=== PATIENT | female | born 1990 | race Caucasian/White ===

== ENCOUNTER → 2019-09-14 11:43 | Outpatient (BNVA) | payer MEDICAID, SELFPAY | PROVIDERS: Family Provider Nurse Practitioner; PCP Nurse Practitioner; Visit Provider Nurse Practitioner | DX: M77.32 Calcaneal spur, left foot (principal); M79.672 Pain in left foot | CPT/HCPCS: 73610; 73630 ==

== ENCOUNTER → 2019-12-13 10:29 | Outpatient (BNVA) | payer MEDICAID, SELFPAY | PROVIDERS: Family Provider Nurse Practitioner; PCP Nurse Practitioner; Visit Provider Psychiatry & Neurology Psychiatry | DX: F41.9 Anxiety disorder, unspecified (principal); F32.9 Major depressive disorder, single episode, unspecified; F43.10 Post-traumatic stress disorder, unspecified | CPT/HCPCS: 99205 ==

== ENCOUNTER → 2020-01-10 07:49 | Outpatient (BNVA) | payer MEDICAID, SELFPAY | PROVIDERS: Family Provider Nurse Practitioner; PCP Nurse Practitioner; Visit Provider Nurse Practitioner Psychiatric/Mental Health | DX: F41.9 Anxiety disorder, unspecified (principal); F32.9 Major depressive disorder, single episode, unspecified; F43.10 Post-traumatic stress disorder, unspecified; F41.1 Generalized anxiety disorder | CPT/HCPCS: 99212 ==

== ENCOUNTER → 2020-02-07 08:12 | Outpatient (BNVA) | payer MEDICAID, SELFPAY | PROVIDERS: Family Provider Nurse Practitioner; PCP Nurse Practitioner; Visit Provider Nurse Practitioner Psychiatric/Mental Health | DX: F41.9 Anxiety disorder, unspecified (principal); F32.9 Major depressive disorder, single episode, unspecified; F43.10 Post-traumatic stress disorder, unspecified | CPT/HCPCS: 99212 ==

== ENCOUNTER → 2020-04-03 07:42 | Outpatient (BNVA) | payer MEDICAID, SELFPAY | PROVIDERS: Family Provider Nurse Practitioner; PCP Nurse Practitioner; Visit Provider Nurse Practitioner Psychiatric/Mental Health | DX: F32.9 Major depressive disorder, single episode, unspecified (principal); F41.9 Anxiety disorder, unspecified; F43.10 Post-traumatic stress disorder, unspecified | CPT/HCPCS: G0463 ==

== ENCOUNTER → 2020-04-05 14:40 | Outpatient (BNVA) | payer MEDICAID, SELFPAY | PROVIDERS: Family Provider Nurse Practitioner; PCP Nurse Practitioner; Visit Provider Nurse Practitioner | DX: Z11.59 Encounter for screening for other viral diseases (principal); R05 Cough; H60.90 Unspecified otitis externa, unspecified ear; J98.01 Acute bronchospasm | CPT/HCPCS: 87635 ==

== ENCOUNTER → 2020-05-22 07:48 | Outpatient (BNVA) | payer MEDICAID, SELFPAY | PROVIDERS: Family Provider Nurse Practitioner; PCP Nurse Practitioner; Visit Provider Nurse Practitioner Psychiatric/Mental Health | DX: F43.10 Post-traumatic stress disorder, unspecified (principal); F41.9 Anxiety disorder, unspecified; F32.9 Major depressive disorder, single episode, unspecified | CPT/HCPCS: 99212 ==

== ENCOUNTER → 2020-08-20 10:04 | Outpatient (BNVA) | payer BC, SELFPAY | PROVIDERS: Family Provider Nurse Practitioner; PCP Nurse Practitioner; Visit Provider Nurse Practitioner Psychiatric/Mental Health | DX: F43.10 Post-traumatic stress disorder, unspecified (principal); F41.9 Anxiety disorder, unspecified; F32.9 Major depressive disorder, single episode, unspecified | CPT/HCPCS: 99213 ==

== ENCOUNTER → 2020-08-24 09:13 | Outpatient (BNVA) | payer BC, SELFPAY | PROVIDERS: Family Provider Nurse Practitioner; PCP Nurse Practitioner; Visit Provider Counselor Mental Health | DX: F43.12 Post-traumatic stress disorder, chronic (principal) | CPT/HCPCS: 90834 ==

== ENCOUNTER → 2020-09-03 09:30 | Outpatient (BNVA) | payer BC, SELFPAY | PROVIDERS: Family Provider Nurse Practitioner; PCP Nurse Practitioner; Visit Provider Counselor Mental Health | DX: F43.12 Post-traumatic stress disorder, chronic (principal); F33.1 Major depressive disorder, recurrent, moderate | CPT/HCPCS: 90832 ==

== ENCOUNTER 2020-09-24 19:51 | Outpatient (CLI) | payer BC, SELFPAY | END 2020-09-24 19:52 | disposition home or self-care (01) | LOC: RADWPI 09-17 08:43 | PROVIDERS: PCP Nurse Practitioner; Visit Provider Nurse Practitioner Family | DX: R19.7 Diarrhea, unspecified (principal) | CPT/HCPCS: 80053; 81003; 84443; 85025; 87086 ==

== ENCOUNTER → 2020-10-03 14:40 | Outpatient (BNVA) | payer BC, SELFPAY | PROVIDERS: PCP Nurse Practitioner; Visit Provider Nurse Practitioner Family | DX: R19.7 Diarrhea, unspecified (principal) | CPT/HCPCS: 87493; 87506 ==

== ENCOUNTER → 2020-10-22 10:10 | Outpatient (BNVA) | payer BC, SELFPAY | PROVIDERS: PCP Nurse Practitioner; Visit Provider Nurse Practitioner Psychiatric/Mental Health | DX: F43.10 Post-traumatic stress disorder, unspecified (principal); F41.9 Anxiety disorder, unspecified; F32.9 Major depressive disorder, single episode, unspecified | CPT/HCPCS: 99213 ==

== ENCOUNTER → 2020-10-24 11:42 | Outpatient (BNVA) | payer BC, SELFPAY | PROVIDERS: PCP Nurse Practitioner; Visit Provider Nurse Practitioner Family | DX: R19.7 Diarrhea, unspecified (principal); A07.1 Giardiasis [lambliasis] | CPT/HCPCS: 80053; 83630; 85025; 87493; 87506 ==

== ENCOUNTER → 2020-12-10 08:02 | Outpatient (BNVA) | payer BC, SELFPAY | PROVIDERS: PCP Nurse Practitioner; Visit Provider Counselor Mental Health | DX: F43.12 Post-traumatic stress disorder, chronic (principal) | CPT/HCPCS: 90834 ==

== ENCOUNTER → 2020-12-13 07:27 | Outpatient (BNVA) | payer BC, SELFPAY | PROVIDERS: PCP Nurse Practitioner; Visit Provider Nurse Practitioner Psychiatric/Mental Health | DX: F43.10 Post-traumatic stress disorder, unspecified (principal); F41.9 Anxiety disorder, unspecified; F32.9 Major depressive disorder, single episode, unspecified | CPT/HCPCS: 99214 ==

== ENCOUNTER → 2021-01-14 14:37 | Outpatient (BNVA) | payer BC, SELFPAY | PROVIDERS: PCP Nurse Practitioner; Visit Provider Nurse Practitioner Psychiatric/Mental Health | DX: F43.10 Post-traumatic stress disorder, unspecified (principal); F41.9 Anxiety disorder, unspecified; F32.9 Major depressive disorder, single episode, unspecified | CPT/HCPCS: 99213 ==

== ENCOUNTER → 2021-03-14 08:09 | Outpatient (BNVA) | payer BC, SELFPAY | PROVIDERS: PCP Nurse Practitioner; Visit Provider Nurse Practitioner Psychiatric/Mental Health | DX: F43.10 Post-traumatic stress disorder, unspecified (principal); F41.9 Anxiety disorder, unspecified; F32.9 Major depressive disorder, single episode, unspecified | CPT/HCPCS: 99213 ==

== ENCOUNTER 2021-08-19 20:10 | Outpatient (CLI) | payer BC, MEDICAID, SELFPAY ==
[2021-08-19 20:10] VITALS: RESP 15; BMI 46.3
[2021-08-19 20:22] VITALS: BP 135/79; PULSE 95; TEMP 36.4
[2021-08-19 20:37] VITALS: BP 134/60; PULSE 96
[2021-08-19 20:52] VITALS: BP 119/57; PULSE 83
[2021-08-19] MEDS: cyclobenzaprine 10 mg Tablet 5 MG PO (20:57)
[2021-08-19 21:20] VITALS: BP 119/57; PULSE 83; RESP 15; TEMP 36.3
== END 2021-08-19 21:20 | disposition home or self-care (01) ==
LOC: OPOB 20:11 → OBGYN 20:12
PROVIDERS: PCP Nurse Practitioner; Visit Provider Family Medicine
DX: O26.899 Other specified pregnancy related conditions, unspecified trimester (principal); Z3A.00 Weeks of gestation of pregnancy not specified; M54.9 Dorsalgia, unspecified
CPT/HCPCS: 99211

== ENCOUNTER 2021-09-10 | Outpatient (CLI) | payer BC, SELFPAY ==
[2021-09-10] VITALS: BMI 46.0
[2021-09-10 00:23] VITALS: BP 115/73; PULSE 93
[2021-09-10 00:43] VITALS: BP 111/59; PULSE 58
[2021-09-10 01:03] VITALS: BP 114/60; PULSE 58
[2021-09-10 01:23] VITALS: BP 104/57; PULSE 54
[2021-09-10 01:48] VITALS: BP 117/61; PULSE 59; TEMP 35.7
[2021-09-10 02:00] VITALS: BP 117/61; PULSE 59; RESP 16; TEMP 35.7
== END 2021-09-10 02:03 | disposition home or self-care (01) ==
LOC: OPOB 00:06 → OBGYN 00:07
PROVIDERS: PCP Nurse Practitioner; Visit Provider Family Medicine
DX: O46.90 Antepartum hemorrhage, unspecified, unspecified trimester (principal); Z3A.00 Weeks of gestation of pregnancy not specified; N89.8 Other specified noninflammatory disorders of vagina
CPT/HCPCS: 59025; 99211

== ENCOUNTER 2021-10-06 16:00 | Outpatient (CLI) | payer BC, SELFPAY ==
[2021-10-06 16:34] VITALS: BP 121/60; PULSE 74
[2021-10-06 16:48] VITALS: BP 124/70; PULSE 85
[2021-10-06 16:58] VITALS: BMI 44.9
[2021-10-06 17:19] VITALS: BP 138/78; PULSE 73
[2021-10-06 17:34] VITALS: BP 146/83; PULSE 77
[2021-10-06 17:40] LABS: Glucose Urine UA Norm (Normal); Protein Urine Trace (Negative); Urine Color Yellow (Yellow); pH Urine 7 (5-7)
[2021-10-06 17:41] LABS: Bilirubin Urine Neg (Negative); Blood Urine Neg (Negative); Ketones Urine Negative (Negative); Leukocyte Esterase Urine Trace (Negative); Nitrate Urine Negative (Negative); Urobilinogen Urine 1 mg/dL (Negative)
[2021-10-06 17:45] LABS: WBC Urine 0-4 /hpf (0-5)
[2021-10-06 17:47] LABS: Bacteria Urine 2+ /hpf; Mucus Urine 2+ /hpf
[2021-10-06 17:48] LABS: Add Urine Culture? No; Squamous Epithelial Cell Urine 15-25 /hpf (0-5)
== END 2021-10-06 18:10 | disposition home or self-care (01) ==
LOC: OPOB 16:04 → OBGYN 16:28
PROVIDERS: Family Medicine; PCP Nurse Practitioner; Visit Provider Family Medicine
DX: O26.899 Other specified pregnancy related conditions, unspecified trimester (principal); Z3A.00 Weeks of gestation of pregnancy not specified; M54.9 Dorsalgia, unspecified
CPT/HCPCS: 59025; 81001; 99211

== ENCOUNTER 2021-10-23 20:45 | Outpatient (CLI) | payer BC, MEDICAID, SELFPAY ==
[2021-10-23] VITALS (7 sets, daily range): BP systolic 95–128; BP diastolic 54–73; PULSE 72–80; TEMP 36; BMI 45.7
== END 2021-10-23 22:25 | disposition home or self-care (01) ==
LOC: OPOB 20:51 → OBGYN 20:52
PROVIDERS: PCP Nurse Practitioner; Visit Provider Family Medicine
DX: O26.899 Other specified pregnancy related conditions, unspecified trimester (principal); Z3A.00 Weeks of gestation of pregnancy not specified; R42 Dizziness and giddiness
CPT/HCPCS: 59025; 99211

== ENCOUNTER 2021-11-15 10:50 | Outpatient (CLI) | payer BC, MEDICAID, SELFPAY ==
[2021-11-15 11:00] VITALS: BMI 44.7
[2021-11-15 11:09] VITALS: BP 126/70; PULSE 92
[2021-11-15 11:19] VITALS: RESP 18; TEMP 36.9
[2021-11-15 11:23] VITALS: BP 114/66; PULSE 81
[2021-11-15 11:45] VITALS: BP 114/66; PULSE 81
== END 2021-11-15 11:45 | disposition home or self-care (01) ==
LOC: OPOB 10:59 → OBGYN 11:00
PROVIDERS: PCP Nurse Practitioner; Visit Provider Family Medicine
DX: O36.8190 Decreased fetal movements, unspecified trimester, not applicable or unspecified (principal); Z3A.00 Weeks of gestation of pregnancy not specified
CPT/HCPCS: 59025; 99211

== ENCOUNTER 2021-11-20 05:28 | Outpatient (CLI) | payer BC, MEDICAID, SELFPAY ==
[2021-11-20] VITALS (11 sets, daily range): BP systolic 122–125; BP diastolic 77–82; PULSE 53–72; RESP 16; TEMP 36.1; O2SAT 98–99; BMI 45.1
== END 2021-11-20 06:31 | disposition home or self-care (01) ==
LOC: OPOB 05:37 → OBGYN 05:37
PROVIDERS: PCP Nurse Practitioner; Visit Provider Family Medicine
DX: O36.8190 Decreased fetal movements, unspecified trimester, not applicable or unspecified (principal); Z3A.00 Weeks of gestation of pregnancy not specified
CPT/HCPCS: 59025; 99211

== ENCOUNTER 2021-11-30 01:26 | Outpatient (CLI) | payer BC, MEDICAID, SELFPAY ==
[2021-11-30] VITALS (15 sets, daily range): BP systolic 120–147; BP diastolic 65–86; PULSE 60–77; RESP 16; TEMP 36–36.4; BMI 44.7
== END 2021-11-30 05:29 | disposition home or self-care (01) ==
LOC: OPOB 01:27 → OBGYN 01:28
PROVIDERS: PCP Nurse Practitioner; Visit Provider Family Medicine
DX: O26.899 Other specified pregnancy related conditions, unspecified trimester (principal); Z3A.00 Weeks of gestation of pregnancy not specified; R10.9 Unspecified abdominal pain
CPT/HCPCS: 59025; 99211

== ENCOUNTER 2021-11-30 19:28 | Outpatient (CLI) | payer BC, MEDICAID, SELFPAY ==
[2021-11-30 19:30] VITALS: RESP 16; BMI 44.7
[2021-11-30 19:41] VITALS: BP 124/84; PULSE 71; TEMP 36.1
[2021-11-30 20:01] VITALS: BP 123/78; PULSE 73
[2021-11-30 20:14] VITALS: BP 116/63; PULSE 69
[2021-11-30 20:19] LABS: Nitrazine Paper, PH Negative
[2021-11-30 20:30] VITALS: BP 116/63; PULSE 69; RESP 16; TEMP 36.1
== END 2021-11-30 20:30 | disposition home or self-care (01) ==
LOC: OPOB 19:33 → OBGYN 19:35
PROVIDERS: PCP Nurse Practitioner; Visit Provider Family Medicine
DX: O26.899 Other specified pregnancy related conditions, unspecified trimester (principal); Z3A.00 Weeks of gestation of pregnancy not specified; N89.8 Other specified noninflammatory disorders of vagina
CPT/HCPCS: 59025; 83986; 99211

== ENCOUNTER 2021-12-03 15:15 | Inpatient (IN) | payer BC, MEDICAID, SELFPAY ==
[2021-12-03 15:20] VITALS: BP 131/92; PULSE 88; RESP 16; TEMP 37.3
[2021-12-03] MEDS: ibuprofen 800 mg tablet PO ×2 (16:04→20:53)
[2021-12-03 17:10] VITALS: BP 128/82; PULSE 73; RESP 15
--- NOTE | 2021-12-03 17:48 | P.HP_ITS ---
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 Per the patient's report she delivered about 1/2-hour after arrival. The delivery was unremarkable. There were not any tears. Per the physician there she had about 200 cc of blood loss. The facility where she delivered is not equipped to handle females, as result she was shipped to our facility for further care and evaluation. The patient had a relatively unremarkable . Her blood type was a positive. Her antibody screen was negative. Her glucose screen was negative. She was GBS negative. The remainder of her labs were within normal limits. Present Details Date of Last Menstrual Period: 03/18/20 Calculated Date of Delivery: 12/23/20 Gestational Age Based on Last Menstrual Period: 88 Review of Systems General: Reports: 10 or more systems reviewed and unremarkable except in HPI and below Const: Reports: fatigue; Denies: fever(s) Eyes: Denies: change in vision Card: Denies: chest pain : Reports: other (Typical bleeding) Musc: Reports: back pain Alexandro/Lymph: Denies: easy bruising Medications/Allergies Home Medications Medication Instructions Recorded Confirmed Last Taken Type 1 mg PO DAILY 08/19/21 11/30/21 11/19/21 History ibuprofen 800 mg tablet 800 mg PO TID #45 tab 12/04/21 Unknown Rx Allergies Allergy/AdvReac Type Severity Reaction Status Date / Time No Known Allergies Allergy Verified 11/30/21 21:27 PFSH 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[employer] 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 PFSH: Medical History (Updated 12/03/21 @ 17:52 by Tanner Benjamin MD) Anxiety and depression Surgical History History of cholecystectomy 2012 Family History Grandfather Diabetes Grandmother Hypercholesterolemia Other Asthma Cancer Heart disease Social History Smoking and tobacco status: light tobacco smoker cigarettes Years cigarettes smoked: 15 [ Other cigarette details: 1 [id number] ] Quit status (tobacco): considering quitting Second hand smoke exposure: No Smoking risk assessment/counseling performed?: No Alcohol intake: current Alcohol intake frequency: holidays/special occasions only Desire information about alcohol rehabilitation?: No Counseling given: No Desire information about substance/drug rehabilitation?: No Counseling given: No Adopted: No Caregiver/support person: No Lives independently: Yes Household members: significant other Housing: House Marital status: Single Number of children: 2 service: No Current occupational status: unemployed History of recent travel: No Current gender identity: Female Physical Exam Const: COMMON NORMALS: patient oriented x3 and alert HENMT: COMMON NORMALS: moist oral mucous membranes HEAD & SCALP: normal to inspection Chest: COMMONS NORMALS: normal inspection of the chest Resp: COMMON NORMALS: clear to auscultation bilaterally AUSCULTATION: clear to auscultation bilaterally Cardio: COMMON NORMALS: regular rate and regular rhythm RATE: regular rate RHYTHM: regular rhythm GI: INSPECTION: Yes normal to inspection and Yes other (Gravid) : EXTERNAL FEMALE EXAM: Yes normal appearance of the urethra and No laceration RECTO-VAGINAL: normal rectovaginal exam Extremity: COMMON NORMALS: normal to inspection GENERAL: Yes edema (Trace) Neuro: COMMON NORMALS: patient oriented x3, moves all extremities and no sensory deficits noted SENSORIUM/ORIENTATION: Yes alert Psych: COMMON NORMALS: mental status grossly normal Skin: COMMON NORMALS: no rashes or lesions noted GENERAL SKIN EXAM: no rashes or lesions noted Data : 12/03/21 22:12 A&P Assessment and plan (1) with 37 weeks completed gestation: I anticipate routine care. 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
[2021-12-03 17:52] VITALS: BMI 44.7
[2021-12-03 18:50] VITALS: BP 128/80; PULSE 77; RESP 16; TEMP 37
[2021-12-03 20:16] VITALS: BP 142/75; PULSE 89; TEMP 36.8; O2SAT 97
[2021-12-03 22:43] LABS: Hematocrit 29.3 % (37.0-47.0); Mean Corpuscular HGB Conc 34.1 g/dL (30.0-36.0); Mean Corpuscular Hemoglobin 29.9 pg (28.0-34.0); Mean Corpuscular Volume 87.7 fl (81-99); Mean Platelet Volume 11.6 fL (7.4-10.4); Platelet Count 160 10^3/cmm (130-400); Red Blood Count 3.34 10^6/uL (4.1-5.3); Red Cell Distribution Width 13.1 % (12.1-15.1); White Blood Count 10.4 10^3/uL (4.0-10.0)
[2021-12-04] VITALS: BP 127/80; PULSE 86; TEMP 36.6; O2SAT 98
[2021-12-04 04:00] VITALS: BP 123/76; PULSE 66; TEMP 36.7; O2SAT 98
[2021-12-04] MEDS: HYDROcodone-acetaminophen 5-325 mg Tablet PO (04:55)
--- NOTE | 2021-12-04 06:49 | P.DS_ITS ---
Discharge Providers NEGATIVE CHECKER Date of Admission: 12/03/21 15:15 Date of Discharge: 12/04/21 Attending Provider at Admission: Tanner Benjamin MD Attending Provider at Discharge: Tanner Benjamin MD Primary Care Provider: LILLIAM Morales Diagnoses at Discharge Discharge Diagnosis (1) with 37 weeks completed gestation: Status: Acute (2) Spontaneous vaginal delivery: Status: Acute Reason for Visit Reason for Visit: Hospital Course Hospital Course The patient arrived yesterday via EMS from [facility] post vaginal delivery. Her hospital stay has been unremarkable. Her bleeding has been within normal limits. She has breast-fed well. Baby has been fussy post breast-feeding sometimes and the patient has also bottle-fed. Her pain is been well controlled. Information Peripartum Data: Infant Delivery Method: Vaginal Physical Exam Narrative: The patient is alert. She appears comfortable. Her heart has a regular rate and rhythm with no murmurs appreciated. Lungs are clear to auscultation bilaterally. Her fundus is firm and below the umbilicus. Discharge Data Studies Completed and Pending Laboratory Results WBC 10.4 10^3/uL (4.0-10.0) H 12/03/21 22:12 RBC 3.34 10^6/uL (4.1-5.3) L 12/03/21 22:12 Hgb 10.0 g/dL (11.5-15.3) L 12/03/21 22:12 Hct 29.3 % (37.0-47.0) L 12/03/21 22:12 MCV 87.7 fl (81-99) 12/03/21 22:12 MCH 29.9 pg (28.0-34.0) 12/03/21 22:12 MCHC 34.1 g/dL (30.0-36.0) 12/03/21 22:12 RDW 13.1 % (12.1-15.1) 12/03/21 22:12 Plt Count 160 10^3/cmm (130-400) 12/03/21 22:12 MPV 11.6 fL (7.4-10.4) H 12/03/21 22:12 Vitals Last Vital Signs Temp 98.0 F 12/04/21 04:00 Pulse 66 12/04/21 04:00 Resp 16 12/03/21 18:50 BP 123/76 12/04/21 04:00 Pulse Ox 98 12/04/21 04:00 Discharge Plan Discharge Patient Disposition: Home Condition: Stable Prescriptions: New ibuprofen 800 mg Tablet 800 mg PO TID Qty: 45 0RF Continued 1 mg PO DAILY 0RF Discontinued omeprazole 1 tab PO PRN PRN (Reason: Heartburn) 0RF Discharge Orders: Discharge Order (Routine); Ordered 12/04/21 Ordered By: Tanner Benjamin Referrals: Tanner Benjamin MD [Physician] - 6 Weeks Discharge Diet: Usual diet Discharge Activity: Limit activity as instructed Patient Instructions: Opioid Safety Discharge Attestations NEGATIVE CHECKER Time Spent in Discharge Care*: less than 30 min Coding Level of Care Code 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
[2021-12-04] MEDS: prenatal vitamin Capsule 1 CAP PO (09:02)
[2021-12-04] MEDS: ibuprofen 800 mg tablet PO (09:02)
[2021-12-04] MEDS: docusate sodium 100 mg Capsule PO (09:02)
[2021-12-04 10:30] VITALS: BP 137/87; PULSE 80; RESP 16; TEMP 36.4; O2SAT 98
[2021-12-04 11:15] VITALS: BP 137/87; PULSE 80; RESP 16; TEMP 36.4; O2SAT 98
== END 2021-12-04 11:35 | disposition home or self-care (01) | DRG 776 ==
PROVIDERS: Admitting Provider Family Medicine; PCP Nurse Practitioner; Visit Provider Family Medicine
DX: Z39.0 Encounter for care and examination of mother immediately after delivery (principal)
CPT/HCPCS: 12345; 59409; 85027

== ENCOUNTER → 2022-01-09 16:18 | Outpatient (BNVA) | payer BC, MEDICAID, SELFPAY | PROVIDERS: PCP Nurse Practitioner; Visit Provider Nurse Practitioner Family | DX: M79.89 Other specified soft tissue disorders (principal) | CPT/HCPCS: 80053 ==

== ENCOUNTER → 2022-10-28 15:04 | Outpatient (BNVA) | payer BC, MEDICAID, SELFPAY | PROVIDERS: PCP Nurse Practitioner; Visit Provider Nurse Practitioner | DX: E66.01 Morbid (severe) obesity due to excess calories (principal); F41.9 Anxiety disorder, unspecified; F32.9 Major depressive disorder, single episode, unspecified; Z78.9 Other specified health status | CPT/HCPCS: 80053; 80061; 84443; 85025 ==

== ENCOUNTER → 2023-03-09 13:30 | Outpatient (BNVA) | payer BC, MEDICAID, SELFPAY | PROVIDERS: PCP Nurse Practitioner; Visit Provider Nurse Practitioner | DX: N91.2 Amenorrhea, unspecified (principal); Z78.9 Other specified health status | CPT/HCPCS: 84702 ==

== ENCOUNTER 2023-08-25 13:38 | Outpatient (CLI) | payer BC, MEDICAID, SELFPAY ==
--- NOTE | 2023-08-25 13:45 | MR_ITS ---
WS: [id number] MRI HEAD WITHOUT CONTRAST TECHNIQUE: Sagittal T1, T2 axial, T2 axial FLAIR, axial and coronal T1 images, axial susceptibility w eighted imaging, axial diffusion weighted images, and coronal T2 images were obtained. CLINICAL INFORMATION: G43.711 - Chronic migraine without aura, intractable, wit... COMPARISON: None. FINDINGS: No evidence of restricted diffusion to suggest acute ischemia. Ventricular system and basilar ciste rns are patent. No suspicious intracranial signal abnormalities. Normal madera-white differentiation. N ormal posterior fossa. Normal vascular flow voids at the skull base. No extra-axial fluid collections . No evidence of mass or mass effect. Mild mucosal thickening in the paranasal sinuses. Mastoid air c ells are well aerated No hemosiderin on the susceptibly weighted images. Normal optic chiasm and pituitary infundibulum. Te mporal lobes and hippocampal formations are normal in appearance. No other suspicious findings. IMPRESSION: 1. No evidence of restricted diffusion to suggest acute ischemia. 2. No suspicious intracranial signal abnormalities. 3. Temporal lobes and hippocampal formations are normal in appearance. No other suspicious findings.
== END 2023-08-25 13:39 | disposition home or self-care (01) ==
LOC: RAD 13:39
PROVIDERS: PCP Nurse Practitioner; Visit Provider Specialist
DX: G43.711 Chronic migraine without aura, intractable, with status migrainosus (principal)
CPT/HCPCS: 70551

== ENCOUNTER → 2023-09-01 15:02 | Outpatient (BNVA) | payer BC, MEDICAID, SELFPAY | PROVIDERS: PCP Nurse Practitioner; Referring Provider Nurse Practitioner Family; Visit Provider Nurse Practitioner Women's Health | DX: Z12.4 Encounter for screening for malignant neoplasm of cervix (principal); R30.0 Dysuria | CPT/HCPCS: 84315; 87624 ==

== ENCOUNTER 2024-10-25 07:46 | Outpatient (CLI) | payer BC, MEDICAID, SELFPAY ==
--- NOTE | 2024-10-25 08:30 | MM_ITS ---
WS: [id number] DIAGNOSTIC BILATERAL DIGITAL BREAST TOMOSYNTHESIS MAMMOGRAPHY WITH CAD Bilateral breast ultrasound, limited HISTORY: N64.4 - Mastodynia COMPARISON: None available. TECHNIQUE: Bilateral craniocaudad, mediolateral oblique, and mediolateral views are submitted with tomosynthesis and SM. Spot compression bilateral CC projections. Computer aided detection utilized. Breast composition: The breasts are heterogeneously dense, which may obscure small masses. Pain markers are placed along the lateral aspect of each breast in the upper outer quadrants. No abnormality identified. No skin thickening. No mass or distortion. No adenopathy. No suspicious grouping of calcifications. Bilateral breast ultrasound, limited. Ultrasound is performed in the area of pain which includes the upper outer quadrant of each breast. There is no abnormality identified. MM/MM diag BI tomosynthesis [id number] IMPRESSION: BI-RADS: 2 - Benign FOLLOW UP: 1 Year Follow-up No ultrasound or mammographic abnormalities are noted in the areas of pain.
--- NOTE | 2024-10-25 09:00 | US_ITS ---
WS: [id number] DIAGNOSTIC BILATERAL DIGITAL BREAST TOMOSYNTHESIS MAMMOGRAPHY WITH CAD Bilateral breast ultrasound, limited HISTORY: N64.4 - Mastodynia COMPARISON: None available. TECHNIQUE: Bilateral craniocaudad, mediolateral oblique, and mediolateral views are submitted with tomosynthesis and SM. Spot compression bilateral CC projections. Computer aided detection utilized. Breast composition: The breasts are heterogeneously dense, which may obscure small masses. Pain markers are placed along the lateral aspect of each breast in the upper outer quadrants. No abnormality identified. No skin thickening. No mass or distortion. No adenopathy. No suspicious grouping of calcifications. Bilateral breast ultrasound, limited. Ultrasound is performed in the area of pain which includes the upper outer quadrant of each breast. There is no abnormality identified. US/US breast BI complete [id number] IMPRESSION: BI-RADS: 2 - Benign FOLLOW UP: 1 Year Follow-up No ultrasound or mammographic abnormalities are noted in the areas of pain.
== END 2024-10-25 07:47 | disposition home or self-care (01) ==
LOC: RAD 07:47
PROVIDERS: PCP Nurse Practitioner; Visit Provider Nurse Practitioner Family
DX: N64.4 Mastodynia (principal); R92.333 Mammographic heterogeneous density, bilateral breasts
CPT/HCPCS: 76641; 77062; G0279

== ENCOUNTER → 2024-11-15 08:40 | Outpatient (BNVA) | payer BC, MEDICAID, SELFPAY | PROVIDERS: PCP Nurse Practitioner; Visit Provider Nurse Practitioner | DX: E78.2 Mixed hyperlipidemia (principal) | CPT/HCPCS: 80053; 80061; 84443 ==

== ENCOUNTER 2024-12-06 09:45 | Outpatient (CLI) | payer BC, MEDICAID, SELFPAY ==
--- NOTE | 2024-12-06 09:49 | XRR_ITS ---
PROCEDURE INFORMATION: Exam: XR Right Shoulder Exam date and time: 12/06/2024 10:09 AM Age: 34 years old Clinical indication: Shoulder; Right; Neck and back pain x yrs, HX of scoliosis, neck pain feels like pinched nerve; Additional info: M25.50 - pain in unspecified joint TECHNIQUE: Imaging protocol: Radiologic exam of the right shoulder. Views: 2 or more views. COMPARISON: CR XR cervical spine 3V* [id number] 12/06/2024 10:09 AM FINDINGS: Bones/joints: Osseous structures are intact. No fracture or malalignment. Joint surfaces are preserved. Soft tissues: Normal. XR/XR shoulder RT min 2V* [id number] IMPRESSION: No acute bony abnormalities.
--- NOTE | 2024-12-06 09:49 | XRR_ITS ---
PROCEDURE INFORMATION: Exam: XR Thoracic Spine Exam date and time: 12/06/2024 10:09 AM Age: 34 years old Clinical indication: Pain in thoracic spine; Neck and back pain x yrs, HX of scoliosis, neck pain feels like pinched nerve; Additional info: M25.50 - pain in unspecified joint TECHNIQUE: Imaging protocol: Radiologic exam of the thoracic spine. Views: 3 views. COMPARISON: CR XR cervical spine 3V* [id number] 12/06/2024 10:09 AM FINDINGS: Bones/joints: Mild accentuated kyphotic curvature otherwise thoracic curvature alignment is unremarkable. There are no compression fractures or spondylolisthesis. Disc heights are maintained. Pedicles are intact. Soft tissues: Unremarkable. XR/XR thoracic spine 3V* [id number] IMPRESSION: Mild thoracic kyphosis otherwise unremarkable study.
--- NOTE | 2024-12-06 09:49 | XRR_ITS ---
PROCEDURE INFORMATION: Exam: XR Lumbosacral Spine Exam date and time: 12/06/2024 10:09 AM Age: 34 years old Clinical indication: Low back pain; Neck and back pain x yrs, HX of scoliosis, neck pain feels like pinched nerve; Additional info: M25.50 - pain in unspecified joint TECHNIQUE: Imaging protocol: Radiologic exam of the lumbosacral spine. Views: 2 or 3 views. COMPARISON: CR XR thoracic spine 3V* [id number] 12/06/2024 10:09 AM FINDINGS: Bones/joints: Lumbar curvature and alignment is unremarkable. There are mild degenerative changes L5-S1 with some disc space narrowing and facet arthrosis. Remaining disc heights maintained. Osseous structures otherwise unremarkable. There is no fracture or spondylolisthesis. Pedicles are intact. Soft tissues: There is a rounded 4 cm masslike density projecting over the left kidney inconclusive for left renal mass as findings may be secondary to incidental fluid-filled bowel loop. XR/XR lumbar spine 2-3V* [id number] IMPRESSION: 1. Mild degenerative changes L5-S1. No acute bony abnormalities. 2. Findings inconclusive for left renal mass. Recommend nonemergent renal ultrasound exam for further assessment
--- NOTE | 2024-12-06 09:49 | XRR_ITS ---
PROCEDURE INFORMATION: Exam: XR Cervical Spine Exam date and time: 12/06/2024 10:09 AM Age: 34 years old Clinical indication: Neck and back pain x yrs, HX of scoliosis, neck pain feels like pinched nerve; Additional info: M25.50 - pain in unspecified joint TECHNIQUE: Imaging protocol: Radiologic exam of the cervical spine. Views: 2 or 3 views. COMPARISON: MR head wo con* [id number] 08/25/2023 1:51 PM FINDINGS: Bones/joints: Normal alignment. No acute fracture or traumatic spondyloliethesis. Disc heights maintained. No significant degenerative changes. Soft tissues: Unremarkable. XR/XR cervical spine 3V* [id number] IMPRESSION: No acute findings.
--- NOTE | 2024-12-06 09:49 | XR_ITS ---
WS: [id number] No fracture. The joints are preserved. Normal soft tissues. XR/XR shoulder LT min 2V* [id number] IMPRESSION: 1. Negative LEFT shoulder.
== END 2024-12-06 09:46 | disposition home or self-care (01) ==
PROVIDERS: PCP Nurse Practitioner; Visit Provider Nurse Practitioner
DX: M25.50 Pain in unspecified joint (principal); M47.897 Other spondylosis, lumbosacral region; M40.294 Other kyphosis, thoracic region; M48.061 Spinal stenosis, lumbar region without neurogenic claudication; R93.89 Abnormal findings on diagnostic imaging of other specified body structures
CPT/HCPCS: 72040; 72072; 72100; 73030

== ENCOUNTER 2024-12-23 12:45 | Outpatient (CLI) | payer BC, MEDICAID, SELFPAY ==
--- NOTE | 2024-12-23 12:45 | USR_ITS ---
PROCEDURE INFORMATION: Exam: US Retroperitoneal, Complete, Kidneys and Bladder Exam date and time: 12/23/2024 1:17 PM Age: 34 years old Clinical indication: Condition or disease; Other: Other specified disorders of adrenal gland; Additional info: E27.8 - other specified disorders of adrenal gland TECHNIQUE: Imaging protocol: Real-time ultrasound of the retroperitoneum with image documentation. Complete exam focused on the bilateral kidneys and urinary bladder. COMPARISON: US OB >= 14 weeks fetus [id number] 08/12/2021 8:57 AM FINDINGS: Limitations: Body habitus and rib spaces. Right kidney: Right kidney measures 10 x 5.5 x 5.4 cm with renal cortical thickness of 1.2 cm. Right renal volume 156 mL. No hydronephrosis or obstruction. No significant focal abnormality. Left kidney: Left kidney measures 10.2 x 6 x 5.8 cm with renal cortical thickness of 1.1 cm. Left renal volume of 185 mL. No hydronephrosis or obstruction. There is suggestion of focal bulge midpole of the left kidney that is isoechoic to the renal cortex with partial invagination of the renal cortex at this level. Unremarkable cortical flow. This is most suggestive of Dromedary hump though there could be a component of column of Kartik. No significant focal abnormality otherwise. Urinary bladder: Images of the urinary bladder are limited. No obvious abnormality. Aorta: Distal abdominal aorta measures 1.6 cm. US/US renal BI* [id number] IMPRESSION: 1. Focal renal cortical bulge midpole left kidney that is isoechoic to the renal cortex with partial invagination of the renal cortex at this level. 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 2. No other significant abnormality. 3. If there remains clinical concern, then further evaluation could be performed with CT without and with contrast or MRI.
== END 2024-12-23 12:46 | disposition home or self-care (01) ==
LOC: RAD 12:45
PROVIDERS: PCP Nurse Practitioner; Visit Provider Nurse Practitioner
DX: E27.8 Other specified disorders of adrenal gland (principal); R93.422 Abnormal radiologic findings on diagnostic imaging of left kidney
CPT/HCPCS: 76770

== ENCOUNTER 2025-01-19 14:53 | Outpatient (CLI) | payer BC, MEDICAID, SELFPAY ==
--- NOTE | 2025-01-19 15:00 | CT_ITS ---
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 Post contrast imaging through the abdomen and pelvis. Oral contrast has not been provided. Sagittal and coronal reformats are submitted. All CT scans at [facility] use at least one of these dose optimization techniques: automated exposure control; mA and/or kV adjustment per patient size (includes targeted exams where dose is matched to clinical indication); or iterative reconstruction. CONTRAST: Omnipaque 350; 95 mL IV. DLP: 2121.84 mGy.cm COMPARISON: Renal ultrasound 12/23/2024 Lung bases are clear. Heart size is normal. Small hiatal hernia. LEFT kidney: 10.6 cm in length. Normal size. No renal obstruction or calcifications. Very minimal cortical thickening of the central LEFT renal parenchyma but no mass identified. No obstruction. RIGHT kidney: 11.3 cm in length. No obstruction or abnormal enhancement. No masses. Liver, spleen, pancreas, adrenals and aorta are negative. Prior cholecystectomy. No GI tract obstruction. Normal appendix. No colitis. Small umbilical hernia. No free fluid. Uterus and ovaries are both present. There is a small amount of fluid adjacent to the RIGHT ovary probably from a ruptured cyst. No destructive bone process. CT/CT abdomen pelvis wo/w [id number] IMPRESSION: 1. Normal LEFT kidney. No mass. Normal prominence of the mid renal cortex. 2. No acute abdominal pelvic abnormalities. 3. Prior cholecystectomy.
[2025-01-19] MEDS: iohexol 350 mg/mL 500 mL Btl (per mL) IV (15:32)
== END 2025-01-19 14:54 | disposition home or self-care (01) ==
PROVIDERS: PCP Nurse Practitioner; Visit Provider Nurse Practitioner
DX: Q63.9 Congenital malformation of kidney, unspecified (principal); Z90.49 Acquired absence of other specified parts of digestive tract; K44.9 Diaphragmatic hernia without obstruction or gangrene; K42.9 Umbilical hernia without obstruction or gangrene; R93.89 Abnormal findings on diagnostic imaging of other specified body structures
CPT/HCPCS: 74178